=== PATIENT | female | born 1950 | race Caucasian/White ===

== ENCOUNTER 2016-05-31 05:07 | Inpatient (IN) | payer OTHER ==
[~2016-05-31] VITALS: Ht 167.6 cm; Wt 67.1 kg
[~2016-05-31 05:07] MED LIST: BUSPAR5 MG PO; CARAFATE100 MG/ML PO; CARDIZEM CD240 MG PO; CELECOXIB200 MG PO; DAILY VALUE1 EACH PO; ENDOCET 5-3251 EACH PO; ERGOCALCIF50000 UNIT PO; IRON325 M1 PO; K-DUR20 MEQ PO; LEXAPRO20 MG PO; LOVENOX100 MG/1 M SQ; LOVENOX40 MG/0.4 SC; MEVACOR10 M1 PO; MEVACOR40 MG PO; MULTIVITAMIN1 EAC1 PO; NORVASC5 MG PO; PEPCID20 MG PO; PROTONIX40 MG PO; PROZAC10 MG PO; SYNTHROID50 MCG PO; TPN; TYLENOL WITH C1 EACH PO; ULTRAM50 MG PO; VITAMIN B-12250 MCG PO; ZESTRIL20 MG PO
[2016-05-31 06:15] LABS: POINT-OF-CARE METER ID UU14174212
[2016-05-31 06:21] VITALS: BP 180/77
[2016-05-31] MEDS ORDERED: PERCOCET 5/31 TABLET PO (10:57)
[2016-05-31] MEDS ORDERED: DOCUSATE SODIU100 MG PO (10:57)
[2016-05-31 13:18] LABS: HEMATOCRIT 36.2 % (36.0-46.0); MCH 31.1 PG (29.0-34.0); MCHC 32.9 G/DL (30.0-36.0); MCV 94.5 FL (83-99); MEAN PLAT.VOLUME 10.4 uM^3 (9.5-12.4); PLATELET COUNT 196 K/uL (156-360); RBC DIS.WIDTH-CV 14.1 % (11.8-14.6); RBC DIS.WIDTH-SD 48.6 % (39-53); RED BLOOD COUNT 3.83 M/uL (3.80-5.20); WHITE BLOOD COUNT 5.5 K/uL (4.1-10.2)
[2016-05-31 13:52] LABS: ANION GAP 7 MEQ/L (2-14); CHLORIDE 105 MEQ/L (99-109); GFR ESTIMATE (CALCULATED) > 59 mL/min/; GLUCOSE 178 mg/dL (70-99); POTASSIUM 4.1 MEQ/L (3.7-5.4); SAMPLE HEMOLYSIS CHECK 0; SAMPLE ICTERIC CHECK 0; SAMPLE LIPEMIA CHECK 0; SODIUM 139 MEQ/L (136-147); UREA NITROGEN (BUN) 10 mg/dL (9-23)
[2016-05-31 15:14] VITALS: BP 142/70
[2016-05-31 19:06] VITALS: BP 158/81
[2016-05-31 22:38] VITALS: BP 119/64
[2016-06-01 02:54] VITALS: BP 121/66
[2016-06-01 07:04] VITALS: BP 121/58
[2016-06-01 07:14] LABS: HEMATOCRIT 31.3 % (36.0-46.0); MCHC 32.9 G/DL (30.0-36.0); MCV 94.3 FL (83-99); MEAN PLAT.VOLUME 10.1 uM^3 (9.5-12.4); PLATELET COUNT 173 K/uL (156-360); RBC DIS.WIDTH-SD 48.5 % (39-53); RED BLOOD COUNT 3.32 M/uL (3.80-5.20); WHITE BLOOD COUNT 4.4 K/uL (4.1-10.2)
[2016-06-01 07:38] LABS: ANION GAP 5 MEQ/L (2-14); CHLORIDE 104 MEQ/L (99-109); GFR ESTIMATE (CALCULATED) > 59 mL/min/; GLUCOSE 94 mg/dL (70-99); POTASSIUM 4.3 MEQ/L (3.7-5.4); SAMPLE HEMOLYSIS CHECK 0; SAMPLE ICTERIC CHECK 0; SAMPLE LIPEMIA CHECK 0; SODIUM 139 MEQ/L (136-147); UREA NITROGEN (BUN) 10 mg/dL (9-23)
[2016-06-01 11:11] VITALS: BP 149/67
[2016-06-01 14:17] VITALS: BP 131/67
[2016-06-01 19:19] VITALS: BP 132/61
[2016-06-01 22:45] VITALS: BP 111/58
[2016-06-02 03:39] VITALS: BP 153/78
[2016-06-02 07:20] LABS: HEMATOCRIT 31.5 % (36.0-46.0); MCH 31.2 PG (29.0-34.0); MCV 94.6 FL (83-99); MEAN PLAT.VOLUME 10.2 uM^3 (9.5-12.4); PLATELET COUNT 165 K/uL (156-360); RBC DIS.WIDTH-CV 14.2 % (11.8-14.6); RBC DIS.WIDTH-SD 48.9 % (39-53); RED BLOOD COUNT 3.33 M/uL (3.80-5.20); WHITE BLOOD COUNT 4.9 K/uL (4.1-10.2)
[2016-06-02 07:32] LABS: ANION GAP 4 MEQ/L (2-14); CHLORIDE 102 MEQ/L (99-109); GFR ESTIMATE (CALCULATED) > 59 mL/min/; GLUCOSE 105 mg/dL (70-99); POTASSIUM 4.4 MEQ/L (3.7-5.4); SAMPLE HEMOLYSIS CHECK 0; SAMPLE ICTERIC CHECK 0; SAMPLE LIPEMIA CHECK 0; SODIUM 138 MEQ/L (136-147); UREA NITROGEN (BUN) 7 mg/dL (9-23)
[2016-06-02 08:16] VITALS: BP 131/67
[2016-06-02 11:34] VITALS: BP 190/84
[2016-06-02 15:23] VITALS: BP 123/67
[2016-06-02 23:38] VITALS: BP 136/68
[2016-06-03 03:12] VITALS: BP 152/74
[2016-06-03 07:09] LABS: HEMATOCRIT 31.4 % (36.0-46.0); MCH 31.5 PG (29.0-34.0); MCHC 33.1 G/DL (30.0-36.0); MCV 95.2 FL (83-99); MEAN PLAT.VOLUME 10.2 uM^3 (9.5-12.4); PLATELET COUNT 157 K/uL (156-360); RBC DIS.WIDTH-CV 14.3 % (11.8-14.6); RBC DIS.WIDTH-SD 49.3 % (39-53)
[2016-06-03 07:33] LABS: ANION GAP 7 MEQ/L (2-14); CHLORIDE 102 MEQ/L (99-109); GFR ESTIMATE (CALCULATED) > 59 mL/min/; GLUCOSE 107 mg/dL (70-99); POTASSIUM 4.2 MEQ/L (3.7-5.4); SAMPLE HEMOLYSIS CHECK 0; SAMPLE ICTERIC CHECK 0; SAMPLE LIPEMIA CHECK 0; SODIUM 140 MEQ/L (136-147); UREA NITROGEN (BUN) 7 mg/dL (9-23)
[2016-06-03 08:15] VITALS: BP 116/66
[2016-06-03 08:35] VITALS: BP 153/78
[2016-06-03 12:09] VITALS: BP 152/86
[2016-06-03 15:53] VITALS: BP 132/68
[2016-06-03 23:33] VITALS: BP 122/66
[2016-06-04 07:50] LABS: HEMATOCRIT 32.5 % (36.0-46.0); MCH 30.1 PG (29.0-34.0); MCHC 31.7 G/DL (30.0-36.0); MEAN PLAT.VOLUME 9.8 uM^3 (9.5-12.4); PLATELET COUNT 181 K/uL (156-360); RBC DIS.WIDTH-CV 14.4 % (11.8-14.6); RBC DIS.WIDTH-SD 50.2 % (39-53); RED BLOOD COUNT 3.42 M/uL (3.80-5.20); WHITE BLOOD COUNT 4.5 K/uL (4.1-10.2)
[2016-06-04 08:39] VITALS: BP 131/78
[2016-06-04 08:41] LABS: ANION GAP 9 MEQ/L (2-14); CHLORIDE 103 MEQ/L (99-109); GFR ESTIMATE (CALCULATED) > 59 mL/min/; GLUCOSE 106 mg/dL (70-99); SAMPLE HEMOLYSIS CHECK 0; SAMPLE ICTERIC CHECK 0; SAMPLE LIPEMIA CHECK 0; SODIUM 141 MEQ/L (136-147); UREA NITROGEN (BUN) 8 mg/dL (9-23)
== END 2016-06-04 15:48 | disposition home or self-care (01) | DRG 658 ==
LOC: 2SOUTH 05:07 → 5EAST 05:07 → 2SOUTH 10:22 → 5EAST 14:35
PROVIDERS: Urology
PROC: 0TB10ZZ Excision of Left Kidney, Open Approach (ICD-10-PCS; principal; 2016-05-31)
DX: C64.2 Malignant neoplasm of left kidney, except renal pelvis (principal); I10 Essential (primary) hypertension; E11.9 Type 2 diabetes mellitus without complications; F32.9 Major depressive disorder, single episode, unspecified; Z96.653 Presence of artificial knee joint, bilateral; Z96.641 Presence of right artificial hip joint; Z88.5 Allergy status to narcotic agent; Z91.040 Latex allergy status
CPT/HCPCS: 80048; 82565; 82948; 85027; 88305; 88307; 88331; 94799; J0131; J0690; J1100; J1170; J1200; J1885; J2150; J2250; J2405; J2710; J2765; J3010; J7120; S0020